=== PATIENT | male | born 1995 | race Caucasian/White ===

== ENCOUNTER 2021-09-11 15:57 | Emergency (ER) | payer OTHER, SELFPAY ==
[2021-09-11 16:11] VITALS: BP 158/102; PULSE 66; RESP 14; TEMP 36.4; O2SAT 98
[2021-09-11 16:39] LABS: Basophils Percent Auto 0.5 % (0.2-1.2); Eosinophils Absolute Auto 0.1 K/mm3 (0-0.3); Eosinophils Percent Auto 1.4 % (0-4.4); Hematocrit 44.2 % (42.0-52.0); Hemoglobin 16.1 g/dL (14.0-18.0); Immature Granulocyte Absolute 0.01 K/mm3 (0.00-0.031); Immature Granulocyte Percent A 0.2 % (0-0.5); Lymphocytes Absolute Auto 1.45 K/mm3 (0.9-3.2); Lymphocytes Percent Auto 21.8 % (18.3-44.2); Mean Corpuscular HGB Conc 36.4 g/dl (32-36); Mean Corpuscular Hemoglobin 33.6 pg (26-34); Mean Corpuscular Volume 92.3 fl (80-100); Mean Platelet Volume 10.3 fl (7.4-10.4); Monocytes Absolute Auto 0.5 K/mm3 (0.1-0.6); Monocytes Percent Auto 7.4 % (2.6-8.5); Neutrophils Absolute Auto 4.6 K/mm3 (1.3-6.7); Neutrophils Percent Auto 68.7 % (45.5-73.1); Platelet Count Result 256 k/mm3 (150-375); Red Blood Count 4.79 M/mm3 (4.6-6.20); Red Cell Distribution Width 11.4 % (11.5-14.5); White Blood Count 6.7 K/mm3 (4.5-10.0)
[2021-09-11 16:45] LABS: Add Urine Microscopic? NO; Appearance Urine Clear (Clear); Bilirubin Urine Negative (Negative); Blood Urine Negative (Negative); Color Urine Colorless (Yellow); Glucose Urine UA Negative (Negative); Ketones Urine Negative (Negative); Leukocyte Esterase Ur Negative LEU/UL (Negative); Nitrate Urine Negative (Negative); Protein Urine Negative (Negative); Urobilinogen Urine Negative mg/dL (<2.0)
[2021-09-11 16:54] LABS: Alanine Aminotransferase 278 U/L (4-50); Albumin Level 5.3 g/dL (3.5-5.1); Alkaline Phosphatase 46 U/L (38-126); Anion Gap 10 mmol/L (8-16); Aspartate Amino Transferase 215 U/L (17-59); Bilirubin,Total 1.6 mg/dL (0.2-1.3); Blood Urea Nitrogen 10 mg/dL (9-20); Calcium 9.9 mg/dL (8.4-10.2); Carbon Dioxide 31 mmol/L (22-30); Chloride 97 mmol/L (98-107); Estimated CRCL calculation 141 ml/min; Estimated Glomerular Filt Rate > 60; Glucose 96 mg/dL (65-110); Lipase 39 U/L (23-300); Potassium 3.8 mmol/L (3.4-5.0); Sodium 138 mmol/L (137-145); Specific Grav Ur 1.002 (1.001-1.035)
--- NOTE | 2021-09-11 17:51 | ED.ABDPAIN ---
HPI - Abdominal Pain General Chief Complaint: Abdominal Pain Stated Complaint: ABD PAIN Time Seen by Provider: 09/11/21 17:50 Source: patient Mode of arrival: ambulatory Limitations: no limitations History of Present Illness HPI narrative: The patient is a 25 yo male previously healthy male presenting for evaluation of abdominal pain. Pt played golf 4 days ago and was consuming alcoholic beverages and a sandwich with cold cuts; nausea, vomiting, diarrhea began Thursday and have persisted through today. Pt reports non bloody diarrhea. He reports non bloody emesis. Today, patient has had sharp LUQ abdominal pain. Pain has subsided currently, rated mild in nature. Movement exacerbates pain. He reports intermittent chills. PT denies any fevers. No dizziness or headache. No vision changes. Related Data Allergies Allergy/AdvReac Type Severity Reaction Status Date / Time amoxicillin Allergy Rash Verified 09/11/21 18:38 clarithromycin [From Biaxin] Allergy Rash Verified 09/11/21 18:38 Sulfa (Sulfonamide Allergy Hives Verified 09/11/21 18:38 Antibiotics) Review of Systems Review of Systems: CONSTITUTIONAL: Denies fever, reports chills EYES: Denies visual changes, redness, or discharge. ENT: Denies rhinorrhea, congestion, sore throat, or otalgia. CARDIOVASCULAR: Denies chest pain, palpitations, or edema. RESPIRATORY: Denies cough or dyspnea. GASTROINTESTINAL: Reports abdominal pain, nausea, and vomiting, diarrhea reported GENITOURINARY: Denies dysuria or hematuria. SKIN: Denies rash or itching. MUSCULOSKELETAL: Denies back pain, joint pain, or myalgia. NEUROLOGIC: Denies headache, numbness, or weakness. [facility] Social History Social History (Updated 09/11/21 @ 18:14 by Yuly Kurtz MD) Smoking status: Current every day smoker Tobacco type: e-cigarettes/vaping Alcohol intake: current Substance use: current Substance use type: marijuana Gender identity (if verbalized by the patient): Male Exam Narrative: GENERAL: Awake, alert, conversant HEAD: Normocephalic, atraumatic. EYES: PERRLA and EOMI. ENT: Nares clear, no rhinorrhea or epistaxis. Mucous membranes moist. NECK: Supple. CHEST: No respiratory distress, breathing even and non labored HEART: Regular rate, sinus rhythm ABDOMEN:Non distended, non tender, no guarding, non rigid, no pain on exam EXTREMITIES: Normal range of motion. No edema. SKIN: Warm, dry, no rash. NEURO:No focal deficits. Alert and oriented x3 Course Vital Signs Vital signs: Vital Signs Temperature 36.4 C 09/11/21 16:11 Pulse Rate 66 09/11/21 16:11 Respiratory Rate 14 09/11/21 16:11 Blood Pressure 158/102 H 09/11/21 16:11 Pulse Oximetry 98 09/11/21 16:11 Temperature 36.4 C 09/11/21 16:11 Pulse Rate 66 09/11/21 16:11 Respiratory Rate 14 09/11/21 16:11 Blood Pressure 158/102 H 09/11/21 16:11 Pulse Oximetry 98 09/11/21 16:11 MDM - Abdominal Pain MDM Narrative Medical decision making narrative: Patient presenting for evaluation of abdominal pain, nausea, vomiting, diarrhea after increased alcohol consumption over the weekend. Patient with resolution of nausea, vomiting today. No current pain at the time of assessment. No fever. No right lower quadrant pain. Laboratory results notable for transaminitis. Mild hyperbilirubinemia. This seems more consistent with dehydration, alcohol consumption. Patient is not jaundiced. Hepatitis seems less likely given patient is fully vaccinated. No recent travel. At this point, I do not feel patient requires any imaging. He has no focal right upper quadrant pain. This does not seem consistent with acute cholecystitis. He has no fever. No leukocytosis. Patient likely with transaminitis secondary to alcohol consumption. Patient will be given medication to help with symptom control. I advised the importance of follow-up with repeat transaminase levels so that these can be trended. I advised patient return adan
[2021-09-11 19:40] VITALS: BP 144/99; PULSE 52; RESP 17; O2SAT 99
== END 2021-09-11 18:46 | disposition home or self-care (01) ==
PROVIDERS: Emergency Medicine; Emergency Provider Emergency Medicine
DX: K29.20 Alcoholic gastritis without bleeding (principal); R74.01 Elevation of levels of liver transaminase levels; F17.290 Nicotine dependence, other tobacco product, uncomplicated
CPT/HCPCS: 36415; 80053; 81003; 83690; 85025; 99283

== ENCOUNTER 2025-10-19 20:19 | Observation (INO) | payer OTHER, SELFPAY ==
[2025-10-19] VITALS (7 sets, daily range): BP systolic 139; BP diastolic 85; PULSE 77–97; RESP 12–20; TEMP 37.7; O2SAT 94–99
--- NOTE | ~2025-10-19 | CT_ITS ---
CT HEAD NON-CONTRAST Clinical History: seziure Comparison: None Technique: Unenhanced axial images skull base to vertex Coronal, sagittal reformats CT images acquired with automatic exposure control for dose reduction DLP: 681 mGy-cm Findings: Sulci, ventricles: Unremarkable. No intracerebral hemorrhage. No evidence acute territorial infarct. No mass effect, midline shift. Bony calvarium intact. Visualized paranasal sinuses: Maxillary mucosal thickening. Mastoid air cells: Clear. IMPRESSION: 1. No acute intracranial findings. Reviewed, dictated and finalized at location [facility]
[2025-10-19 20:51] LABS: Hematocrit 42.6 % (42.0-52.0); Hemoglobin 15.1 g/dL (14.0-18.0); Immature Granulocyte Percent A 0.3 % (0-0.5); Lymphocytes Absolute Auto 0.42 K/mm3 (0.9-3.2); Mean Corpuscular HGB Conc 35.4 g/dl (32-36); Mean Corpuscular Hemoglobin 34.3 pg (26-34); Mean Corpuscular Volume 96.8 fl (80-100); Nucleated Red Blood Cells Absolute Auto 0.000 K/mm3 (0.0-0.012); Nucleated Red Blood Cells Perc 0.0 % (0.0-0.2); Platelet Count Result 237 k/mm3 (150-375); Red Blood Count 4.40 M/mm3 (4.6-6.20); White Blood Count 9.2 K/mm3 (4.5-10.0)
[2025-10-19 21:23] LABS: Alanine Aminotransferase 191 U/L (6-50); Albumin Level 5.1 g/dL (3.5-5.1); Alkaline Phosphatase 91 U/L (38-126); Anion Gap 17 mmol/L (4-12); Aspartate Amino Transferase 332 U/L (17-59); Bilirubin,Total 2.8 mg/dL (0.2-1.3); Blood Urea Nitrogen 6 mg/dL (9-20); Calcium 9.3 mg/dL (8.4-10.2); Carbon Dioxide 27 mmol/L (22-30); Chloride 91 mmol/L (98-107); Estimated CRCL calculation 145 ml/min; Estimated Glomerular Filt Rate > 60; Glucose 149 mg/dL (65-110); Potassium 3.9 mmol/L (3.4-5.0); Sodium 135 mmol/L (137-145); Total Protein 8.4 g/dL (6.3-8.2)
[2025-10-19] MEDS: ONDANSETRON INJ 4 MG/2 ML VIAL IV PUSH (21:48)
[2025-10-19 21:56] LABS: Add Urine Microscopic? YES; Appearance Urine Clear (Clear); Glucose Urine UA Negative (Negative); Leukocyte Esterase Ur 1+ LEU/UL (Negative); Need Manual Microscopic Reviewed; Nitrate Urine Positive (Negative); Specific Grav Ur 1.029 (1.001-1.035)
[2025-10-19] MEDS: THIAMINE HCL INJ 100 MG, FOLIC ACID INJ 1 MG, MAGNESIUM SULFATE INJ 1 GM, MULTIVITAMINS... 125 MG IV CONT (22:32)
--- NOTE | 2025-10-19 22:40 | ED_ITS ---
HPI - Seizure General Chief Complaint: Seizure Stated Complaint: SEIZURE R/T ETOH WITHDRAWAL Time Seen by Provider: 10/19/25 21:55 History of Present Illness HPI Narrative: 29-year-old male with history of alcohol abuse presenting to the emergency department after witnessed seizure presumptively and alcohol withdrawal seizure. Patient states he drinks nearly daily but for last 3-4 days has stopped drinking entirely. [place] nauseous and was vomiting profoundly for last 2 days and then today went to urgent care who referred him to the ER as he was appearing dehydrated and still nauseous. Prior to arrival to the ED patient had a witnessed generalized tonic clonic seizure with loss of consciousness and fall to the ground without significant head trauma. Lasting about 30 seconds and then had a postictal phase for about 10-15 minutes until ambulance arrived. Patient has no history of seizure disorder or any previous seizures. Still feels nauseous and his tremulous with some anxiety. Otherwise calm and cooperative. Vital signs are stable. No tachycardia, fever, hypoxemia or blood pressure concerns. Denies any chronic medications. Aside from alcohol does not use any other recreational substances. No other precipitating factors or recent illnesses. Related Data Allergies Allergy/AdvReac Type Severity Reaction Status Date / Time amoxicillin Allergy Rash Verified 10/19/25 20:30 clarithromycin (From Biaxin) Allergy Rash Verified 10/19/25 20:30 Sulfa (Sulfonamide Allergy Hives Verified 10/19/25 20:30 Antibiotics) Review of Systems 2 Review of Systems: As reviewed above in HPI [facility] Social History Social History Smoking status: Current every day smoker Tobacco type: e-cigarettes/vaping Alcohol intake: current Substance use: current Substance use type: marijuana Gender identity (if verbalized by the patient): Male Exam 2 Narrative: GENERAL: [Well-appearing, well-nourished, and in no acute distress.] HEAD: [Normocephalic, atraumatic.] EYES: [PERRLA and EOMI.] ENT: Nares clear, no rhinorrhea or epistaxis. Mucous membranes moist. NECK: Supple. CHEST: [Clear to auscultation. No respiratory distress.] HEART: [Regular rate and rhythm]. No murmur heard. [Normal peripheral pulses.] ABDOMEN: [Soft, nondistended], [nontender], [No rigidity or guarding] EXTREMITIES: Normal range of motion. No extremity edema. Tremor with both arms SKIN: Warm, dry, no rash. NEURO: [No focal deficits]. Alert and oriented [x3.] PSYCH: [Normal mood and affect.] Course Vital Signs Vital signs: Vital Signs Temperature 37.7 C H 10/19/25 20:15 Pulse Rate 93 10/19/25 20:15 Respiratory Rate 19 10/19/25 20:15 Blood Pressure 139/85 10/19/25 20:15 Pulse Oximetry 94 10/19/25 20:15 Oxygen Delivery Room Air 10/19/25 20:15 Temperature 37.3 C 10/20/25 00:55 Pulse Rate 61 10/20/25 04:01 Respiratory Rate 15 10/20/25 04:01 Blood Pressure 152/93 H 10/20/25 03:05 Pulse Oximetry 96 10/20/25 04:01 Oxygen Delivery Room Air 10/19/25 20:27 MDM - Seizure MDM Narrative Medical decision making narrative: 29-year-old male with history of alcohol abuse presenting to the emergency department after witnessed seizure presumptively and alcohol withdrawal seizure. Patient states he drinks nearly daily but for last 3-4 days has stopped drinking entirely. [place] nauseous and was vomiting profoundly for last 2 days and then today went to urgent care who referred him to the ER as he was appearing dehydrated and still nauseous. Prior to arrival to the ED patient had a witnessed generalized tonic clonic seizure with loss of consciousness and fall to the ground without significant head trauma. Lasting about 30 seconds and then had a postictal phase for about 10-15 minutes until ambulance arrived. Patient has no history of seizure disorder or any previous seizures. Still feels nauseous and his tremulous with some anxiety. Otherwise calm and cooperative. Vital signs are stable. No tachycardia, fever, hypoxemia or blood pressure concerns. Denies any chronic medications. Aside from alcohol does not use any other recreational substances. No other precipitating factors or recent illnesses. Patient has normal vital signs. Does have a tremor and a CIWA score of 9 presently. Presumptive etiology of his seizure was alcohol withdrawal as he has no other chronic medical conditions or prodromal symptoms leading up to the event. No history of epilepsy. Laboratory studies and a CT of the head ordered. Patient given 5 milligram/kilogram loading dose of phenobarbital for alcohol withdrawal. Given dextrose containing fluids with vitamins and thiamine/folic acid. Plan for admission for withdrawal symptoms and seizure prophylaxis. Patient comfortable to plan and family on board for treatment. Will await labs and CT prior discussion with the hospitalist. CT scan was reassuring without any process. Patient does have a lactic acidosis consistent with his seizure. Repeat lactic acid improved. Does have an anion gap consistent with lactic acidosis. Given fluids and phenobarbital load which he tolerated well. Symptoms improved. Given patient's history of significant alcohol abuse and now having withdrawal seizure he will be admitted to the hospital for continued care. Spoke to the hospitalist who accepted the patient to the IMU at this time. As needed benzos ordered for high CIWA scores. Spoke to patient and family regarding plan and they were comfortable with admission. Medical Records Attestation: I reviewed the patient's medical records. Lab Data Attestation: I reviewed the patient's lab results. 10/19/25 20:44 10/19/25 21:07 Labs: Lab Results 10/19/25 10/19/25 10/19/25 Range/Units 20:44 21:07 21:42 WBC 9.2 (4.5-10.0) K/mm3 RBC 4.40 L (4.6-6.20) M/mm3 Hgb 15.1 (14.0-18.0) g/dL Hct 42.6 (42.0-52.0) % MCV 96.8 (80-100) fl MCH 34.3 H (26-34) pg MCHC 35.4 (32-36) g/dl RDW 11.8 (11.5-14.5) % Plt Count 237 (150-375) k/mm3 MPV 10.3 (7.4-10.4) fl Immature Gran % (Auto) 0.3 (0-0.5) % Neut % (Auto) 88.6 H (45.5-73.1) % Lymph % (Auto) 4.6 L (18.3-44.2) % [place] % (Auto) 6.1 (2.6-8.5) % Eos % (Auto) 0.0 (0-4.4) % Baso % (Auto) 0.4 (0.2-1.2) % Lymph # (Auto) 0.42 L (0.9-3.2) K/mm3 Trinity # (Auto) 0.6 (0.1-0.6) K/mm3 Eos # (Auto) 0.0 (0-0.3) K/mm3 Baso # (Auto) 0.0 (0.0-0.1) K/mm3 Abs Immat Gran (auto) 0.03 (0.00-0.031) K/mm3 Absolute Neuts (auto) 8.2 H (1.3-6.7) K/mm3 Absolute Nucleated RBC 0.000 (0.0-0.012) K/mm3 Nucleated RBC % 0.0 (0.0-0.2) % Sodium 135 L (137-145) mmol/L Potassium 3.9 (3.4-5.0) mmol/L Chloride 91 L (98-107) mmol/L Carbon Dioxide 27 (22-30) mmol/L Anion Gap 17 H (4-12) mmol/L BUN 6 L (9-20) mg/dL Creatinine 0.73 (0.7-1.3) mg/dL Estim Creat Clear Calc 145 ml/min Estimated GFR > 60 (59 - ) Glucose 149 H (65-110) mg/dL Lactic Acid 7.6 H* (0.7-2.0) mmol/L Calcium 9.3 (8.4-10.2) mg/dL Total Bilirubin 2.8 H (0.2-1.3) mg/dL AST 332 H (17-59) U/L ALT 191 H (6-50) U/L Alkaline Phosphatase 91 (38-126) U/L Total Protein 8.4 H (6.3-8.2) g/dL Albumin 5.1 (3.5-5.1) g/dL Urine Color Dark yellow (Yellow) Urine Appearance Clear (Clear) Urine pH 6.0 (5.0-9.0) Ur Specific [place] 1.029 (1.001-1.035) Urine Protein 3+ H (Negative) mg/dL Urine Glucose (UA) Negative (Negative) mg/dL Urine Ketones 3+ H (Negative) mg/dL Ur Blood (Man) Negative (Negative) Urine Nitrate Positive H (Negative) Urine Bilirubin 1+ H (Negative) Urine Urobilinogen 1.0 (<2.0) mg/dL Add Ur Microanalysis Reviewed Leukocyte Esterase Rfl 1+ H (Negative) KAREN/UL Urine RBC 0-2 (0-2) /hpf Urine WBC 0-5 (0-3) /hpf Ur Squamous Epith Cells None seen (Few) /hpf Urine Bacteria None seen /hpf Urine Casts 11-20 10/19/25 Range/Units 23:17 WBC (4.5-10.0) K/mm3 RBC (4.6-6.20) M/mm3 Hgb (14.0-18.0) g/dL Hct (42.0-52.0) % MCV (80-100) fl MCH (26-34) pg MCHC (32-36) g/dl RDW (11.5-14.5) % Plt Count (150-375) k/mm3 MPV (7.4-10.4) fl Immature Gran % (Auto) (0-0.5) % Neut % (Auto) (45.5-73.1) % Lymph % (Auto) (18.3-44.2) % Trinity % (Auto) (2.6-8.5) % Eos % (Auto) (0-4.4) % Baso % (Auto) (0.2-1.2) % Lymph # (Auto) (0.9-3.2) K/mm3 [place] # (Auto) (0.1-0.6) K/mm3 Eos # (Auto) (0-0.3) K/mm3 Baso # (Auto) (0.0-0.1) K/mm3 Abs Immat Gran (auto) (0.00-0.031) K/mm3 Absolute Neuts (auto) (1.3-6.7) K/mm3 Absolute Nucleated RBC (0.0-0.012) K/mm3 Nucleated RBC % (0.0-0.2) % Sodium (137-145) mmol/L Potassium (3.4-5.0) mmol/L Chloride (98-107) mmol/L Carbon Dioxide (22-30) mmol/L Anion Gap (4-12) mmol/L BUN (9-20) mg/dL Creatinine (0.7-1.3) mg/dL Estim Creat Clear Calc ml/min Estimated GFR (59 - ) Glucose (65-110) mg/dL Lactic Acid 2.5 H (0.7-2.0) mmol/L Calcium (8.4-10.2) mg/dL Total Bilirubin (0.2-1.3) mg/dL AST (17-59) U/L ALT (6-50) U/L Alkaline Phosphatase (38-126) U/L Total Protein (6.3-8.2) g/dL Albumin (3.5-5.1) g/dL Urine Color (Yellow) Urine Appearance (Clear) Urine pH (5.0-9.0) Ur Specific [place] (1.001-1.035) Urine Protein (Negative) mg/dL Urine Glucose (UA) (Negative) mg/dL Urine Ketones (Negative) mg/dL Ur Blood (Man) (Negative) Urine Nitrate (Negative) Urine Bilirubin (Negative) Urine Urobilinogen (<2.0) mg/dL Add Ur Microanalysis Leukocyte Esterase Rfl (Negative) KAREN/UL Urine RBC (0-2) /hpf Urine WBC (0-3) /hpf Ur Squamous Epith Cells (Few) /hpf Urine Bacteria /hpf Urine Casts Imaging Data Attestation: I personally reviewed and interpreted this imaging study as follows: Radiologist's impression: No acute intracranial process Critical Care Time Critical Care Time Critical Care Time: Yes Total Critical Care Time: 35 Discharge Plan Discharge Clinical Impression: Alcohol withdrawal seizure Patient Disposition: Still a Patient Condition: Stable
[2025-10-19] MEDS: LACTATED RINGERS 1,000 ML 999 ML IV CONT (22:53)
[2025-10-20] VITALS (23 sets, daily range): BP systolic 125–152; BP diastolic 72–96; PULSE 60–102; RESP 12–24; TEMP 36.6–37.3; O2SAT 93–100; BMI 28.1
[2025-10-20] MEDS: chlordiazePOXIDE (*CRX) 25 MG CAPSULE 50 MG PO ×2 (06:19→12:04)
--- NOTE | 2025-10-20 07:14 | PC.NURSE ---
Patient resting in hospital bed. Patient states he is feeling so much better. CIWA performed and patient is at a 3 at this time. Patient informed to let this RN know if he starts to feel his withdraw symptoms returning. Patient calm and cooperative.
--- NOTE | 2025-10-20 08:19 | P.HP_ITS ---
H&P: HPI History of Present Illness Date/Time: 10/20/25 08:19 Chief Complaint: Seizure Narrative: Fredrick Henry is a 29-year-old male with a past medical history of alcohol abuse who presents to the hospital after a witnessed seizure that occurred on 10/19. He states that he has history of alcohol abuse, reportedly drinking 3-4 5ths vodka per week. Patient states that his last alcoholic drink was on Thursday. Reports nausea and vomiting for the past 2 days prior to admission, and on 10/19 he went to urgent care who referred him to the ER. While walking to the car after leaving the urgent care, the patient had a witnessed 30 second seizure. His mother, who was present during the seizure, reports that he did not hit his head during the seizure. Patient reportedly had a postictal phase for 15 minutes until EMS arrived on scene. Patient denies any history of seizures. Patient expresses interest line discontinuing alcohol use and would like resources for cessation of alcohol use. ED workup: 139/85, HR 93, 94% on RA, 37.7C WBC 9.2, RBC 4.4, Hgb 15.1, Hct 42.6, Plt 237, Na 135, K 3.9, BUN 6, Cr 0.73, Glucose 149, Lactic Acid 7.6, AST 332, ALT 191, Total bilirubin 2.8 UA: 3+ protein, 3+ ketones, + nitrates, otherwise unremarkable, urine culture pending Head CT: No acute intracranial findings. Review of Systems Review of Systems: All systems reviewed & are unremarkable except as noted in HPI and below PMFSH Family History Family History (Updated 10/20/25 @ 11:39 by Aliza Dennis RN) Father Heart disease Grandparent Heart disease Cerebrovascular accident Breast cancer Skin cancer Mother Diabetes mellitus Heart disease Hypertension Social History Social History Smoking status: Current every day smoker Tobacco type: e-cigarettes/vaping Alcohol intake: current Substance use: former Substance use type: marijuana Other substance usage details: 10/18/2025 Lack of Transportation: No Lack of Food: Never True Current Housing: I Have Housing Concerned About Future Housing: No Difficulty Paying Gas/Electric Bills: No Difficulty Paying for Meds: No Currently Unemployed: No Education: Bachelor's Degree Difficulty w/ Childcare or Family Care: No Gender identity (if verbalized by the patient): Male Spiritual care concerns: No Meds Home Medications and Allergies Home Medications ?Medication ?Instructions ?Recorded ?Confirmed ?Type No Home Medications 10/20/25 10/20/25 H istory Allergies Allergy/AdvReac Type Severity Reaction Status Date / Time amoxicillin Allergy Rash Verified 10/20/25 11:33 clarithromycin (From Biaxin) Allergy Rash Verified 10/20/25 11:33 Sulfa (Sulfonamide Allergy Hives Verified 10/20/25 11:33 Antibiotics) Vital Signs Vital Signs - 24 hr 10/19/25 20:15 10/19/25 20:27 10/19/25 20:29 Temperature 99.9 F H 99.9 F H Pulse Rate 93 97 Respiratory Rate 19 20 Blood Pressure 139/85 139/85 Pulse Oximetry 94 96 96 Oxygen Delivery Room Air Room Air 10/19/25 23:00 10/19/25 23:30 10/19/25 23:36 Temperature Pulse Rate 79 77 80 Respiratory Rate 12 13 Blood Pressure Pulse Oximetry 99 98 Oxygen Delivery 10/19/25 23:50 10/20/25 00:00 10/20/25 00:55 Temperature 99.2 F Pulse Rate 81 78 98 Respiratory Rate 18 16 14 Blood Pressure 126/73 Pulse Oximetry 98 97 94 Oxygen Delivery 10/20/25 03:05 10/20/25 03:15 10/20/25 04:01 Temperature Pulse Rate 81 65 61 Respiratory Rate 19 16 15 Blood Pressure 152/93 H Pulse Oximetry 99 97 96 Oxygen Delivery 10/20/25 05:18 10/20/25 05:31 10/20/25 05:48 Temperature Pulse Rate 65 62 60 Respiratory Rate 12 14 14 Blood Pressure Pulse Oximetry 98 98 96 Oxygen Delivery 10/20/25 06:15 10/20/25 06:21 10/20/25 07:11 Temperature 98.6 F Pulse Rate 62 68 83 Respiratory Rate 20 15 22 H Blood Pressure 138/84 140/93 H Pulse Oximetry 100 97 97 Oxygen Delivery Exam Narrative: Gen - Well appearing male in no acute respiratory distress who is nontoxic- appearing lying semi recumbent in bed HEENT - normocephalic. Atraumatic. Pupils equal round and reactive. Sclera clear and anicteric. Nares patent. Moist mucous membranes. No facial asymmetry. Neck - neck was supple. No dominant adenopathy, thyromegaly or masses. 2+ carotid upstrokes without bruits. Chest - lungs are clear to auscultation bilaterally. No wheezes or crackles. CV - heart was regular rate and rhythm. S1-S2. No murmurs gallops or rubs. Abd - abdomen was soft. Nontender. Nondistended. Positive bowel sounds. Ext - no clubbing, cyanosis or edema. 2+ DP pulses bilaterally. Neuro - Slight tremor in both upper extremities. Patient is alert and oriented x4. Strength is 5/5 in both upper and lower extremities. Speech is clear. Psych - normal mood and affect. Patient is pleasant and cooperative. Skin - warm and dry. No rashes noted. H&P: Results Labs Labs: Short CBC 10/19/25 Range/Units 20:44 WBC 9.2 (4.5-10.0) K/mm3 Hgb 15.1 (14.0-18.0) g/dL Hct 42.6 (42.0-52.0) % Plt Count 237 (150-375) k/mm3 BMP 10/19/25 21:07 Sodium 135 L Potassium 3.9 Chloride 91 L Carbon Dioxide 27 BUN 6 L Creatinine 0.73 Glucose 149 H Calcium 9.3 Liver Function 10/19/25 Range/Units 21:07 Total Bilirubin 2.8 H (0.2-1.3) mg/dL AST 332 H (17-59) U/L ALT 191 H (6-50) U/L Alkaline Phosphatase 91 (38-126) U/L Albumin 5.1 (3.5-5.1) g/dL Urine 10/19/25 Range/Units 21:42 Urine Color Dark yellow (Yellow) Urine Appearance Clear (Clear) Urine pH 6.0 (5.0-9.0) Ur Specific [place] 1.029 (1.001-1.035) Urine Protein 3+ H (Negative) mg/dL Urine Glucose (UA) Negative (Negative) mg/dL Assessment and Plan Assessment and plan (1) Alcohol withdrawal seizure: Code(s): F10.939 - Alcohol use, unspecified with withdrawal, unspecified; R56.9 - Unspecified convulsions Status: Acute Assessment and Plan: * Head CT: No acute intracranial findings * daily ETOH use: 3-4 5ths of vodka per week * last drink: 3-4 days prior to arrival * CIWA protocol in place * Diazepam prn for seizure * Zofran PRN * PO Ativan q 4hr * Daily Thiamine, folic acid ordered * seizure precautions * neurochecks Q2H * IV fluids * Most recent CIWA: 4 (2) Lactic acidosis: Code(s): E87.20 - Acidosis, unspecified Status: Acute Assessment and Plan: * Upon admission: lactic acid 7.6 * Likely secondary to preciptating seizure * Accompanied by anion gap * IVFs started in ED * Repeat lactic: 2.5 * Continue IVFs, repeat lactic acid (3) Electrolyte imbalance: Code(s): E87.8 - Other disorders of electrolyte and fluid balance, not elsewhere classified Status: Acute Assessment and Plan: * Upon admission: Na 135, K 3.9 * 10/20: Na 132, K 3.3 * Likely secondary to excessive GI losses - vomiting * Replenish K with oral supplementation * Monitor electrolytes with daily CMP Quality VTE Prophylaxis VTE prophylaxis: pharmacologic ordered
[2025-10-20 09:22] LABS: Hematocrit 38.4 % (42.0-52.0); Hemoglobin 13.5 g/dL (14.0-18.0); Immature Granulocyte Percent A 0.3 % (0-0.5); Lymphocytes Absolute Auto 0.50 K/mm3 (0.9-3.2); Mean Corpuscular HGB Conc 35.2 g/dl (32-36); Mean Corpuscular Hemoglobin 34.2 pg (26-34); Mean Corpuscular Volume 97.2 fl (80-100); Nucleated Red Blood Cells Absolute Auto 0.000 K/mm3 (0.0-0.012); Nucleated Red Blood Cells Perc 0.0 % (0.0-0.2); Platelet Count Result 187 k/mm3 (150-375); Red Blood Count 3.95 M/mm3 (4.6-6.20); White Blood Count 6.4 K/mm3 (4.5-10.0)
[2025-10-20 09:47] LABS: Alanine Aminotransferase 155 U/L (6-50); Albumin Level 4.5 g/dL (3.5-5.1); Alkaline Phosphatase 69 U/L (38-126); Anion Gap 10 mmol/L (4-12); Aspartate Amino Transferase 298 U/L (17-59); Bilirubin,Total 3.1 mg/dL (0.2-1.3); Blood Urea Nitrogen 6 mg/dL (9-20); Calcium 8.8 mg/dL (8.4-10.2); Carbon Dioxide 28 mmol/L (22-30); Chloride 94 mmol/L (98-107); Estimated CRCL calculation 163 ml/min; Estimated Glomerular Filt Rate > 60; Glucose 88 mg/dL (65-110); Potassium 3.3 mmol/L (3.4-5.0); Sodium 132 mmol/L (137-145); Total Protein 7.4 g/dL (6.3-8.2)
[2025-10-20] MEDS: THERAPEUTIC MULTIVITAMINS/MINERALS TAB (*BKC) 1 TABLET PO (10:21)
--- NOTE | 2025-10-20 10:26 | PC.NURSE ---
Patient ambulated to the restroom with steady gate.
--- NOTE | 2025-10-20 10:29 | WPCEDHO ---
ED Hand Off Checklist All vitals saved:yes IV Site documented:yes All med administrations documented:yes Triage Note Triage Note pt to ED via [facility] 10/19/25 20:15 after seizure. pt states he stopped drinking alcohol 24 hours ago and went to [facility] care for fluids due to having a VANG and feeling nauseous. EMS states pt had a seizure in the parking lot walking into the facility. pt states he drinks daily and drinks a handle of whiskey or vodka over the span of a week. EMS states pt was postictal upon arrival to convenient care, unknown downtime . pt states he has never had a seizure. pt A&Ox3 upon arrival. Allergies amoxicillin Allergy (Verified 10/20/25 06:39) Rash clarithromycin (From Biaxin) Allergy (Verified 10/20/25 06:39) Rash Sulfa (Sulfonamide Antibiotics) Allergy (Verified 10/20/25 06:39) Hives Active Medications including assessments/comments Chlordiazepoxide HCl (Chlordiazepoxide (*Crx) 25 Mg Capsule) 50 mg PO Q6HR [facility] Last Admin: 10/20/25 06:19 Dose: 50 mg Documented By: MILKA Multivitamins/Calcium (Therapeutic Multivitamins/Minerals Tab (*Bkc)) 1 tablet PO DAILY [facility] Last Admin: 10/20/25 10:21 Dose: 1 tablet Documented By: DILLON Administered/Completed Medications Discontinued Medications Thiamine HCl 100 mg/ Folic Acid 1 mg/ Magnesium Sulfate 1 gm/ Multivitamins 5 ml/Multivitamins 5 ml/ Sodium Chloride 1,013.2 mls @ 125 mls/hr IV CONT .Q8H7M ONE Stop: 10/20/25 06:01 Last Infusion: 10/20/25 07:07 Dose: Infused Documented By: Admin: 10/19/25 22:32 Dose: 125 mls/hr Documented By: JARAD Co-signed By: MILKA Lactated Ringer's (Lr - Lactated Ringers Iv) 1,000 mls @ 999 mls/hr IV CONT .Q1H1M STA Stop: 10/19/25 22:57 Last Infusion: 10/20/25 00:13 Dose: Infused Documented By: Admin: 10/19/25 22:53 Dose: 999 mls/hr Documented By: JARAD Phenobarbital Sodium 520 mg/ (Sodium Chloride) 104 mls @ 208 mls/hr IVPB ONCE ONE Stop: 10/19/25 23:29 Last Infusion: 10/20/25 00:13 Dose: Infused Documented By: Admin: 10/19/25 23:23 Dose: 208 mls/hr Documented By: MILKA Ondansetron HCl (Ondansetron Inj 4 Mg/2 Ml Vial) 4 mg IV PUSH ONCE STA Stop: 10/19/25 21:46 Last Admin: 10/19/25 21:48 Dose: 4 mg Documented By: JARAD Notes 10/20/25 10:26 Nurse Note by Magalis Montana. Patient ambulated to the restroom with steady gate. Initialized on 10/20/25 10:26 - END OF NOTE 10/20/25 07:14 Nurse Note by Magalis Montana. Patient resting in hospital bed. Patient states he is feeling so much better. CIWA performed and patient is at a 3 at this time. Patient informed to let this RN know if he starts to feel his withdraw symptoms returning. Patient calm and cooperative. Initialized on 10/20/25 07:14 - END OF NOTE Interventions/Assessments Cardiac Monitoring Start: 10/19/25 20:14 Freq: Status: Active Protocol: Document 10/19/25 23:36 EMDaniela (Rec: 10/19/25 23:36 EMW [id number]) Foot Specialist Assessment Foot Specialist Yes Applied Pulse Rate (60-100) 80 IV / Saline Lock, Insert Start: 10/19/25 20:13 Freq: Status: Active Protocol: Document 10/19/25 20:48 JARAD (Rec: 10/19/25 22:04 PAOLAD [id number]) IV Assessment Peripheral Access Right Antecubital IV Catheter Access Initiated IV Insertion Date 10/19/25 IV Insertion Time 20:48 Catheter Gauge 18 IV Insertion 1 Attempts Ultrasound Used for No Placement IV Site Assessment WNL IV Care and WNL Maintenance Peripheral Access Left Antecubital IV Catheter Access Initiated Before Arrival IV Insertion Date 10/19/25 Catheter Gauge 20 IV Site Assessment WNL IV Care and WNL Maintenance PA: Neurological Assessment Start: 10/19/25 20:13 Freq: Status: Active Protocol: Document 10/20/25 01:08 MILKA (Rec: 10/20/25 01:59 EMW [id number]) Neurological Assessment Level of Alert,Awake Consciousness Orientation Oriented to Person,Oriented to Place,Oriented to Time Neurological Hallucinations,Tremors Symptoms Hallucination Type Auditory Unable to Redirect No Behavior Behavior Appropriate,Cooperative Patient Able to Comprehend Comprehension Memory Description Intact Ability to Maintain Normal Balance Facial Symmetry Symmetrical Speech Pattern Clear Ability to Swallow Normal [place] Coma Scale Eyes Open Verbal Oriented and Alert Motor Follows Commands Lisette Coma Total 15 Score Last Vital Signs Temperature 98.6 F 10/20/25 06:21 Pulse Rate 88 10/20/25 08:30 Respiratory Rate 19 10/20/25 08:30 Pulse Oximetry 97 10/20/25 08:30 Blood Pressure 142/87 H 10/20/25 08:30 Blood Pressure Mean 105 10/20/25 08:30 Blood Pressure Position Supine 10/19/25 20:15 Oxygen Delivery Room Air 10/19/25 20:27 Weight 101.4 kg 10/19/25 20:15 Last Result - Abnormals Only RBC 3.95 M/mm3 (4.6-6.20) L 10/20/25 09:15 Hgb 13.5 g/dL (14.0-18.0) L 10/20/25 09:15 Hct 38.4 % (42.0-52.0) L 10/20/25 09:15 MCH 34.2 pg (26-34) H 10/20/25 09:15 MPV 10.5 fl (7.4-10.4) H 10/20/25 09:15 Neut % (Auto) 83.2 % (45.5-73.1) H 10/20/25 09:15 Lymph % (Auto) 7.8 % (18.3-44.2) L 10/20/25 09:15 Lymph # (Auto) 0.50 K/mm3 (0.9-3.2) L 10/20/25 09:15 Absolute Neuts (auto) 8.2 K/mm3 (1.3-6.7) H 10/19/25 20:44 Sodium 132 mmol/L (137-145) L 10/20/25 09:15 Potassium 3.3 mmol/L (3.4-5.0) L 10/20/25 09:15 Chloride 94 mmol/L (98-107) L 10/20/25 09:15 Anion Gap 17 mmol/L (4-12) H 10/19/25 21:07 BUN 6 mg/dL (9-20) L 10/20/25 09:15 Creatinine 0.64 mg/dL (0.7-1.3) L 10/20/25 09:15 Glucose 149 mg/dL (65-110) H 10/19/25 21:07 POC Capillary Glucose 120 mg/dl (65-105) H 10/20/25 01:57 Lactic Acid 2.5 mmol/L (0.7-2.0) H 10/19/25 23:17 Total Bilirubin 3.1 mg/dL (0.2-1.3) H 10/20/25 09:15 AST 298 U/L (17-59) H 10/20/25 09:15 ALT 155 U/L (6-50) H 10/20/25 09:15 Total Protein 8.4 g/dL (6.3-8.2) H 10/19/25 21:07 Urine Protein 3+ mg/dL (Negative) H 10/19/25 21:42 Urine Ketones 3+ mg/dL (Negative) H 10/19/25 21:42 Urine Nitrate Positive (Negative) H 10/19/25 21:42 Urine Bilirubin 1+ (Negative) H 10/19/25 21:42 Leukocyte Esterase Rfl 1+ KAREN/UL (Negative) H 10/19/25 21:42 Most Recent CIWA Score CIWA Total Score 3 10/20/25 07:10 Most Recent Suicide Severity Rating Suicide Severity Rating NO RISK INDICATED 10/19/25 20:15
--- NOTE | 2025-10-20 11:49 | ADMGEN ---
This patient, Fredrick Henry, was admitted to IMU Room 207-01 at 1109. Patient/family oriented to hospital policies and general routines including ID bracelet, bed and alarms, visiting hours, pain management, procedures, bathroom and other care routines, personal items, smoking policy, room service/diet, and visiting hours. Information on how to activate the Rapid Response Team has been discussed. Patient/Family are encouraged to report perceived risks to care and to ask questions if they do not understand what they are told or what they should do.
[2025-10-20] MEDS: SODIUM CHLORIDE 0.9% IV 1,000 ML 100 ML IV CONT ×2 (12:04→23:17)
[2025-10-20] MEDS: LORazepam (*CRX) 1 MG TABLET PO ×2 (16:11→22:16)
[2025-10-20] MEDS: POTASSIUM CHLORIDE 20 MEQ ER TABLET PO (16:11)
[2025-10-21] VITALS (9 sets, daily range): BP systolic 122–132; BP diastolic 75–91; PULSE 54–94; RESP 15–20; TEMP 36.4–36.9; O2SAT 97–100
[2025-10-21] MEDS: LORazepam (*CRX) 1 MG TABLET PO ×3 (00:13→09:40)
[2025-10-21 04:46] LABS: Hematocrit 39.3 % (42.0-52.0); Hemoglobin 13.4 g/dL (14.0-18.0); Immature Granulocyte Percent A 0.6 % (0-0.5); Lymphocytes Absolute Auto 0.60 K/mm3 (0.9-3.2); Mean Corpuscular HGB Conc 34.1 g/dl (32-36); Mean Corpuscular Hemoglobin 34.1 pg (26-34); Mean Corpuscular Volume 100.0 fl (80-100); Nucleated Red Blood Cells Absolute Auto 0.000 K/mm3 (0.0-0.012); Nucleated Red Blood Cells Perc 0.0 % (0.0-0.2); Platelet Count Result 174 k/mm3 (150-375); Red Blood Count 3.93 M/mm3 (4.6-6.20); White Blood Count 5.3 K/mm3 (4.5-10.0)
[2025-10-21 05:15] LABS: Alanine Aminotransferase 140 U/L (6-50); Albumin Level 4.3 g/dL (3.5-5.1); Alkaline Phosphatase 64 U/L (38-126); Anion Gap 10 mmol/L (4-12); Aspartate Amino Transferase 241 U/L (17-59); Bilirubin,Total 3.0 mg/dL (0.2-1.3); Blood Urea Nitrogen 4 mg/dL (9-20); Calcium 8.3 mg/dL (8.4-10.2); Carbon Dioxide 29 mmol/L (22-30); Chloride 96 mmol/L (98-107); Estimated CRCL calculation 168 ml/min; Estimated Glomerular Filt Rate > 60; Glucose 81 mg/dL (65-110); Potassium 3.5 mmol/L (3.4-5.0); Sodium 135 mmol/L (137-145); Total Protein 7.0 g/dL (6.3-8.2)
[2025-10-21] MEDS: SODIUM CHLORIDE 0.9% IV 1,000 ML 100 ML IV CONT (09:39)
[2025-10-21] MEDS: THIAMINE HCL 100 MG TABLET PO (09:40)
[2025-10-21] MEDS: THERAPEUTIC MULTIVITAMINS/MINERALS TAB (*BKC) 1 TABLET PO (09:40)
[2025-10-21] MEDS: FOLIC ACID 1 MG TABLET PO (09:40)
--- NOTE | 2025-10-21 12:26 | P.DS_ITS ---
DS: Admitting Diagnosis Discharge Date 10/21/25 Admitting Diagnosis Alcohol withdrawal seizure DS: Discharge Diagnosis Discharge Diagnosis (1) Alcohol withdrawal seizure: Code(s): F10.939 - Alcohol use, unspecified with withdrawal, unspecified; R56.9 - Unspecified convulsions Status: Acute Assessment and Plan: * Head CT: No acute intracranial findings * daily ETOH use: 3-4 5ths of vodka per week * last drink: 3-4 days prior to arrival * CIWA protocol in place * Diazepam prn for seizure * Zofran PRN * PO Ativan q 4hr * Daily Thiamine, folic acid ordered * seizure precautions * neurochecks Q2H * IV fluids * Most recent CIWA: 4 (2) Lactic acidosis: Code(s): E87.20 - Acidosis, unspecified Status: Acute Assessment and Plan: * Upon admission: lactic acid 7.6 * Likely secondary to preciptating seizure * Accompanied by anion gap * IVFs started in ED * Repeat lactic: 2.5 * Continue IVFs, repeat lactic acid (3) Electrolyte imbalance: Code(s): E87.8 - Other disorders of electrolyte and fluid balance, not elsewhere classified Status: Acute Assessment and Plan: * Upon admission: Na 135, K 3.9 * 10/20: Na 132, K 3.3 * Likely secondary to excessive GI losses - vomiting * Replenish K with oral supplementation * Monitor electrolytes with daily CMP DS: Summary Hospital Course Reason for hospitalization: Seizure Hospital Course: Per HPI: Fredrick Henry is a 29-year-old male with a past medical history of alcohol abuse who presents to the hospital after a witnessed seizure that occurred on 10/19. He states that he has history of alcohol abuse, reportedly drinking 3-4 5ths vodka per week. Patient states that his last alcoholic drink was on Wednesday 10/17. Reports nausea and vomiting for the past 2 days prior to admission, and on 10/19 he went to urgent care who referred him to the ER. While walking to the car after leaving the urgent care, the patient had a witnessed 30 second seizure. His mother, who was present during the seizure, reports that he did not hit his head during the seizure. Patient reportedly had a postictal phase for 15 minutes until EMS arrived on scene. Patient denies any history of seizures. Patient expresses interest line discontinuing alcohol use and would like resources for cessation of alcohol use. ED workup: 139/85, HR 93, 94% on RA, 37.7C WBC 9.2, RBC 4.4, Hgb 15.1, Hct 42.6, Plt 237, Na 135, K 3.9, BUN 6, Cr 0.73, Glucose 149, Lactic Acid 7.6, AST 332, ALT 191, Total bilirubin 2.8 UA: 3+ protein, 3+ ketones, + nitrates, otherwise unremarkable, urine culture pending Head CT: No acute intracranial findings. Hospital Course: Alcohol withdrawal orders replaced, including CIWA protocol, diazepam p.r.n. for seizures, Zofran p.r.n. for nausea, p.o. Ativan every 4 hours, daily thiamine, folic acid and multivitamin, seizure precautions and neurological checks every 2 hours. During admission, see while scores ranged from 3-9, with most recent CIWA score in 10/[address] did not show any acute intracranial findings. Throughout hospitalizations, he remained afebrile without leukocytosis, denies any neck pain or rigidity with flexion/extension of head. Denied any chest pain, shortness of breath, nausea/vomiting, abdominal pain throughout hospitalization. Sodium did decrease to 132, but increased back up to 135 on 10/21, potassium was 3.3 on 10/20 but was given oral supplementation and repeat on 10/21 showed potassium of 3.5 otherwise no electrolyte abnormal ities. On 10/21: Total bilirubin 3.0, AST 241, ALT 140, these are all down trending from admission, no abdominal discomfort on exam, no signs of jaundice. Patient is otherwise hemodynamically stable 1. CIWA scores have been decreasing and throughout hospitalization patient did not have any repeat/recurrent seizures. Care coordination was consulted and has given the patient appropriate resources for alcohol cessation. Patient will be discharged at this time with 1 month supply of folic acid, thiamine and multivitamin and instructed to follow- up with his primary care provider and to continue alcohol cessation. Patient is amenable to this plan, plan for discharge now. Status at Discharge Functional status at discharge: independent ambulation Overall status at discharge: patient is back to baseline Time Spent with Patient Time attestation: Total time spent providing and/or coordinating discharge services: 31 Exam Narrative: Gen - Well appearing male in no acute respiratory distress who is nontoxic- appearing lying semi recumbent in bed HEENT - normocephalic. Atraumatic. Pupils equal round and reactive. Sclera clear and anicteric. Nares patent. Moist mucous membranes. No facial asymmetry. Neck - neck was supple. No dominant adenopathy, thyromegaly or masses. 2+ carotid upstrokes without bruits. Chest - lungs are clear to auscultation bilaterally. No wheezes or crackles. CV - heart was regular rate and rhythm. S1-S2. No murmurs gallops or rubs. Abd - abdomen was soft. Nontender. Nondistended. Positive bowel sounds. Ext - no clubbing, cyanosis or edema. 2+ DP pulses bilaterally. Neuro - Slight tremor in both upper extremities. Patient is alert and oriented x4. Strength is 5/5 in both upper and lower extremities. Speech is clear. Psych - normal mood and affect. Patient is pleasant and cooperative. Skin - warm and dry. No rashes noted. DS: Data Data Completed and Pending Labs on day of discharge: Labs from last 24 hours 10/21/25 10/21/25 10/21/25 11:47 07:27 04:15 WBC 5.3 RBC 3.93 L Hgb 13.4 L Hct 39.3 L MCV 100.0 MCH 34.1 H MCHC 34.1 RDW 11.5 Plt Count 174 MPV 10.8 H Immature Gran % (Auto) 0.6 H Neut % (Auto) 78.6 H Lymph % (Auto) 11.3 L [place] % (Auto) 6.6 Eos % (Auto) 2.3 Baso % (Auto) 0.6 Lymph # (Auto) 0.60 L [place] # (Auto) 0.4 Eos # (Auto) 0.1 Baso # (Auto) 0.0 Abs Immat Gran (auto) 0.03 Absolute Neuts (auto) 4.2 Absolute Nucleated RBC 0.000 Nucleated RBC % 0.0 Sodium 135 L Potassium 3.5 Chloride 96 L Carbon Dioxide 29 Anion Gap 10 BUN 4 L Creatinine 0.64 L Estim Creat Clear Calc 168 Estimated GFR > 60 Glucose 81 POC Capillary Glucose 103 88 Calcium 8.3 L Total Bilirubin 3.0 H AST 241 H ALT 140 H Alkaline Phosphatase 64 Total Protein 7.0 Albumin 4.3 10/21/25 10/20/25 00:16 17:56 WBC RBC Hgb Hct MCV MCH MCHC RDW Plt Count MPV Immature Gran % (Auto) Neut % (Auto) Lymph % (Auto) [place] % (Auto) Eos % (Auto) Baso % (Auto) Lymph # (Auto) [place] # (Auto) Eos # (Auto) Baso # (Auto) Abs Immat Gran (auto) Absolute Neuts (auto) Absolute Nucleated RBC Nucleated RBC % Sodium Potassium Chloride Carbon Dioxide Anion Gap BUN Creatinine Estim Creat Clear Calc Estimated GFR Glucose POC Capillary Glucose 88 126 H Calcium Total Bilirubin AST ALT Alkaline Phosphatase Total Protein Albumin Discharge Plan Discharge Attending physician on discharge: Joao Tsai Consulting providers: Nargis Sharp; Alexx Muro Discharging Clinician: Alexx Muro Anticipated Discharge Date/Time: 10/21/25 10:31 Patient Disposition: Home Activity: as tolerated Diet: regular Discharge Instructions: * Discharge disposition: Home * Take medications as prescribed. Continue taking Folic acid, Thiamine, and Multivitamin supplements daily for 30 days. * Monitor blood pressures * Take caution while standing, rising, or moving * Change positions slowly taking a break between each position change * If you standing feel dizzy sit back down and take a break * Monitor for warning signs:?Seek medical attention immediately if you experience confusion, hallucinations, severe agitation, fever, rapid heartbeat, or another seizure. * Stay hydrated and eat regular meals.?Drink plenty of fluids and eat nutritious foods to help your body recover. * Avoid alcohol and other sedatives.?Drinking again or using sedative drugs can be dangerous and may trigger more severe withdrawal or seizures. * Safety precautions:?You are at risk for falls and injury. Move carefully, use handrails, and ask for help if you feel weak or dizzy. * Return to the emergency department if you develop sudden shortness of breath, chest pain, nausea, vomiting, upset stomach or intractable diarrhea * Return to the emergency department if you develop fever greater than 101.5 * Follow-up with the primary care physician within 1-2 weeks Thank you for [facility] for your healthcare needs Patient Instructions: Antibiotic Form, Cigarette Smoking and Your Health (GEN), Electronic Cigarettes and Your Health (GEN) Patient Language: Frisian Stand Alone Forms: General Discharge Information Follow-up/Referrals: PHYSICIAN,[employer] [Primary Care Provider, Internal Medicine] Discharge Medications: New thiamine HCl (vitamin B1) [Vitamin B-1] 100 mg Tablet 100 mg PO DAILY Qty: 30 0RF folic acid 1 mg Tablet 1 mg PO DAILY Qty: 30 0RF multivitamin [One Daily Multivitamin] Tablet 1 tablet PO DAILY Qty: 30 0RF Date of admission: 10/20/25 01:07 Primary Care Provider: PHYSICIAN,[employer] Admitting Provider: Joao Tsai Attending physician on admission: Joao Tsai Condition: Stable Quality VTE Prophylaxis VTE prophylaxis: pharmacologic ordered
== END 2025-10-21 12:37 | disposition home or self-care (01) ==
LOC: ANHED 10-20 02:03 → ANHIMU 10-20 02:11
PROVIDERS: Physician Assistant; Admitting Provider Internal Medicine; Emergency Provider Student in an Organized Health Care Education/Training Program; Visit Provider Internal Medicine
DX: F10.139 Alcohol abuse with withdrawal, unspecified (principal); R56.9 Unspecified convulsions; E87.20 Acidosis, unspecified; E87.8 Other disorders of electrolyte and fluid balance, not elsewhere classified; F17.290 Nicotine dependence, other tobacco product, uncomplicated
CPT/HCPCS: 36415; 70450; 80053; 81001; 82948; 83605; 85025; 87086; 87186; 96360; 96361; 96365; 96366; 96367; 96375; 99285; A9270; G0378; J2405; J2560; J3411; J3475; J7030; J7120